=== PATIENT | female | born 1945 | race Caucasian/White ===

== ENCOUNTER 2017-07-20 09:38 | Outpatient (CLI) | payer MEDICARE ==
--- NOTE | 2017-07-20 11:17 | RAD ---
PA AND LATERAL VIEWS OF THE CHEST: HISTORY: Cough. COMPARISON: 10/10/2015 FINDINGS: The heart size is normal. The aorta is tortuous. The lungs are well expanded without confluent area s of consolidation, pneumothoraces, or pleural effusions. There are degenerative changes of the spin e. IMPRESSION: No radiographic evidence of acute cardiopulmonary process. POS: [facility]
== END 2017-07-20 09:39 | disposition home or self-care (01) ==
LOC: RAD 09:38
PROVIDERS: ATTEND Internal Medicine
DX: R05 Cough (principal)
CPT/HCPCS: 71046; 87804

== ENCOUNTER 2017-10-19 21:08 | Emergency (ER) | payer MEDICARE ==
[2017-10-19] MEDS ORDERED: Acetaminophen 325 MG TAB ONE (21:50)
== END 2017-10-19 22:29 | disposition home or self-care (01) ==
LOC: SCSER 21:08
DX: S00.03XA Contusion of scalp, initial encounter (principal); S00.83XA Contusion of other part of head, initial encounter; S80.02XA Contusion of left knee, initial encounter; I10 Essential (primary) hypertension; M19.90 Unspecified osteoarthritis, unspecified site; Z85.3 Personal history of malignant neoplasm of breast; Z79.899 Other long term (current) drug therapy; W01.0XXA Fall on same level from slipping, tripping and stumbling without subsequent striking against object, initial encounter
CPT/HCPCS: 99283

== ENCOUNTER 2017-12-22 10:22 | Outpatient (CLI) | payer MEDICARE | END 2017-12-22 10:23 | disposition home or self-care (01) | LOC: BICMAMMO 10:22 | PROVIDERS: ATTEND Internal Medicine Hematology & Oncology | DX: Z12.31 Encounter for screening mammogram for malignant neoplasm of breast (principal); Z85.3 Personal history of malignant neoplasm of breast | CPT/HCPCS: 77063; 77067 ==

== ENCOUNTER 2018-12-29 15:09 | Outpatient (CLI) | payer MEDICARE ==
--- NOTE | 2018-12-29 17:43 | MMO ---
Bilateral MAMMO Bilat Screen [facility]. CLINICAL HISTORY: Patient is 73 years old and is seen for screening. The patient has no family history of breast cancer. The patient has a history of malignant (generic) in the right breast 2008. VIEWS: The views performed were: bilateral craniocaudal with tomosynthesis and bilateral mediolateral oblique with tomosynthesis. FILMS COMPARED: The present examination has been compared to prior imaging studies performed at [facility] on 12/10/2015, 12/16/2016 and 12/22/2017. MAMMOGRAM FINDINGS: There are scattered fibroglandular densities. There is a post-surgical scar seen in the posterior upper-outer region of the right breast. Finding remains unchanged from the prior study. There are no suspicious masses, suspicious calcifications, or new areas of architectural distortion. IMPRESSION: THERE IS NO MAMMOGRAPHIC EVIDENCE OF MALIGNANCY. A ROUTINE FOLLOW-UP MAMMOGRAM IN 1 YEAR IS RECOMMENDED. THE RESULTS OF THIS EXAM WERE SENT TO THE PATIENT. ACR BI-RADS Category 2 - Benign finding MAMMOGRAPHY NOTE: 1. A negative mammogram report should not delay a biopsy if a dominant of clinically suspicious mass is present. 2. Approximately 10% to 15% of breast cancers are not detected by mammography. 3. Adenosis and dense breasts may obscure an underlying neoplasm. Reported by: RHIANNA CORNELL MD Electonically Signed: [id number]
== END 2018-12-29 15:10 | disposition home or self-care (01) ==
LOC: BICMAMMO 15:09
PROVIDERS: ATTEND Internal Medicine Hematology & Oncology
DX: Z12.31 Encounter for screening mammogram for malignant neoplasm of breast (principal)
CPT/HCPCS: 77063; 77067

== ENCOUNTER 2020-01-02 10:39 | Outpatient (CLI) | payer MEDICARE ==
--- NOTE | 2020-01-02 11:36 | MMO ---
Bilateral MAMMO Bilat Screen [facility]. CLINICAL HISTORY: Patient is 74 years old and is seen for screening. The patient has no family history of breast cancer. The patient has a history of malignant (generic) in the right breast 2008. VIEWS: The views performed were: bilateral craniocaudal with tomosynthesis and bilateral mediolateral oblique with tomosynthesis. FILMS COMPARED: The present examination has been compared to prior imaging studies performed at [facility] on 12/10/2015, 12/16/2016, 12/22/2017 and 12/29/2018. This study has been interpreted with the assistance of computer-aided detection. MAMMOGRAM FINDINGS: There are scattered fibroglandular densities. Finding 1: There are stable benign appearing calcifications seen in both breasts. Finding 2: There is a stable post-surgical scar seen in the right breast. There are no suspicious masses, suspicious calcifications, or new areas of architectural distortion. IMPRESSION: THERE IS NO MAMMOGRAPHIC EVIDENCE OF MALIGNANCY. A ROUTINE FOLLOW-UP MAMMOGRAM IN 1 YEAR IS RECOMMENDED. THE RESULTS OF THIS EXAM WERE SENT TO THE PATIENT. ACR BI-RADS Category 2 - Benign finding MAMMOGRAPHY NOTE: 1. A negative mammogram report should not delay a biopsy if a dominant of clinically suspicious mass is present. 2. Approximately 10% to 15% of breast cancers are not detected by mammography. 3. Adenosis and dense breasts may obscure an underlying neoplasm. Reported by: SHIRAZ STAPLETON MD Electonically Signed: [id number]
== END 2020-01-02 10:40 | disposition home or self-care (01) ==
LOC: BICMAMMO 10:39
PROVIDERS: ATTEND Internal Medicine Hematology & Oncology
DX: Z12.31 Encounter for screening mammogram for malignant neoplasm of breast (principal); Z85.3 Personal history of malignant neoplasm of breast
CPT/HCPCS: 77063; 77067

== ENCOUNTER 2020-10-11 09:50 | Outpatient (CLI) | payer MEDICARE | END 2020-10-11 09:51 | disposition home or self-care (01) | LOC: TBSIIMAG 09:50 | PROVIDERS: ATTEND Orthopaedic Surgery | DX: M43.06 Spondylolysis, lumbar region (principal); M47.816 Spondylosis without myelopathy or radiculopathy, lumbar region; M51.25 Other intervertebral disc displacement, thoracolumbar region; M47.817 Spondylosis without myelopathy or radiculopathy, lumbosacral region | CPT/HCPCS: 72148 ==

== ENCOUNTER 2020-10-23 09:45 | Outpatient (CLI) | payer MEDICARE | END 2020-10-23 09:46 | disposition home or self-care (01) | LOC: BICRAD 09:45 | PROVIDERS: ATTEND Specialist | DX: M25.512 Pain in left shoulder (principal) ==

== ENCOUNTER 2021-05-21 09:19 | Outpatient (CLI) | payer MEDICARE | END 2021-05-21 09:20 | disposition home or self-care (01) | LOC: BICMAMMO 09:19 | PROVIDERS: ATTEND Internal Medicine | DX: Z13.820 Encounter for screening for osteoporosis (principal); M85.89 Other specified disorders of bone density and structure, multiple sites | CPT/HCPCS: 77080 ==

== ENCOUNTER 2021-11-14 12:29 | Outpatient (CLI) | payer MEDICARE ==
[2021-11-14 14:42] LABS: #Eosinphils 0.1 10x3/uL (0.0-0.5); #Monocytes 0.3 10x3/uL (0.0-1.1); #Neutrophils 3.5 10x3/uL (1.5-8.4); %Basophils 0.8 % (0.0-2.0); %Eosinophils 1.5 % (0.0-6.0); %Lymphocytes 18.2 % (18.0-47.0); %Monocytes 5.7 % (0.0-10.0); %Neutrophils 73.6 % (40.0-75.0); Hemoglobin 13.1 g/dL (12.0-15.5); Mean Corpuscular HGB CONC 31.8 g/dL (32.0-36.0); Mean Corpuscular Hemoglobin 28.7 pg (27.0-33.0); Mean Corpuscular Volume 90.2 fl (81.6-98.3); Mean Platelet Volume 10.1 fl (7.4-10.4); Platelet Count 216 10x3/uL (150-450); RBC Distribution Width 13.2 % (11.5-14.5); Red Blood Cell (RBC) Count 4.57 10x6/uL (3.90-5.03); White Blood Cell (WBC) Count 4.7 10x3/uL (3.5-10.5)
[2021-11-14 15:00] LABS: ALT (SGPT) 55 U/L (8-55); AST (SGOT) 18 U/L (5-34); Albumin 4.5 g/dL (3.4-4.8); Alkaline Phosphatase 65 U/L (40-110); Anion Gap 14 mmol/L (10-20); BUN (Urea Nitrogen) 9 mg/dL (9.8-20.1); Bilirubin, Total 0.7 mg/dL (0.2-1.2); Calc. Creatinine Clearance 0 mL/min (70-130); Calcium 9.5 mg/dL (7.8-10.44); Carbon Dioxide 27 mmol/L (23-31); Chloride 105 mmol/L (98-107); Globulin 2.4 g/dL (2.4-3.5); Glucose 82 mg/dL (83-110); Potassium 4.1 mmol/L (3.5-5.1); Protein, Total 6.9 g/dL (5.8-8.1); Sodium 142 mmol/L (136-145)
== END 2021-11-14 12:30 | disposition home or self-care (01) ==
LOC: LABBT 12:29
PROVIDERS: ATTEND Internal Medicine Cardiovascular Disease
DX: Z01.818 Encounter for other preprocedural examination (principal); Z20.822 Contact with and (suspected) exposure to COVID-19
CPT/HCPCS: 80053; 85025; 93005; U0003; U0005; 93010

== ENCOUNTER 2021-11-19 06:03 | Day surgery (SDC) | payer MEDICARE ==
[2021-11-14 13:29] VITALS: BMI 25.0
== END 2021-11-19 08:59 | disposition home or self-care (01) ==
LOC: CCL 06:03
PROVIDERS: ATTEND Internal Medicine Cardiovascular Disease
PROC: B246ZZ4 Ultrasonography of Right and Left Heart, Transesophageal (ICD-10-PCS; principal; 2021-11-19)
PROC: 5A2204Z Restoration of Cardiac Rhythm, Single (ICD-10-PCS; 2021-11-19)
DX: I48.0 Paroxysmal atrial fibrillation (principal); I11.9 Hypertensive heart disease without heart failure; I08.3 Combined rheumatic disorders of mitral, aortic and tricuspid valves; I70.0 Atherosclerosis of aorta; M19.90 Unspecified osteoarthritis, unspecified site; Z85.3 Personal history of malignant neoplasm of breast; Z79.01 Long term (current) use of anticoagulants; Z79.899 Other long term (current) drug therapy; Z88.5 Allergy status to narcotic agent
CPT/HCPCS: 92960; 93005; 93010; 93312

== ENCOUNTER 2021-11-25 16:08 | Inpatient (IN) | payer MEDICARE ==
[2021-11-25 18:14] VITALS: BMI 24.7
[2021-11-25] MEDS ORDERED: Metoprolol Tartrate 5 MG/5 ML VIAL IVP SCH (20:40)
[2021-11-26] MEDS ORDERED: Acetaminophen 325 MG TAB PO PRN (00:13)
[2021-11-26] MEDS ORDERED: Apixaban 5 MG TAB PO SCH ×2 (00:45→09:00)
[2021-11-26] MEDS ORDERED: Carvedilol 3.125 MG TAB PO SCH (00:45)
[2021-11-26 04:56] LABS: Cardiac Risk 3.2 (Less than 4.5)
[2021-11-26 08:14] LABS: #Eosinphils 0.1 thou/uL (0.0-0.7); #Lymphocytes 1.3 thou/uL (1.20-3.40); #Monocytes 0.4 thou/uL (0.11-0.59); #Neutrophils 4.4 thou/uL (1.40-6.50); %Basophils 0.2 % (0.0-1.0); %Eosinophils 1.4 % (0.0-10.0); %Lymphocytes 21.2 % (21.0-51.0); %Monocytes 5.8 % (0.0-10.0); %Neutrophils 71.4 % (42.0-75.0); Hemoglobin 11.9 g/dL (12.0-16.0); Mean Corpuscular Hemoglobin 29.1 pg (27.0-31.0); Mean Corpuscular Volume 93.9 fL (78.0-98.0); Mean Platelet Volume 7.8 fL (7.4-10.4); Platelet Count 214 thou/uL (130-400); RBC Distribution Width 12.1 % (11.5-14.5); Red Blood Cell (RBC) Count 4.07 mill/uL (4.20-5.40); White Blood Cell (WBC) Count 6.1 thou/uL (4.8-10.8)
[2021-11-26 08:25] LABS: ALT (SGPT) 23 U/L (8-55); AST (SGOT) 21 U/L (5-34); Albumin 3.5 g/dL (3.4-4.8); Alkaline Phosphatase 50 U/L (40-110); Anion Gap 14 mmol/L (10-20); BUN (Urea Nitrogen) 9 mg/dL (9.8-20.1); Bilirubin, Total 0.8 mg/dL (0.2-1.2); Calc. Creatinine Clearance 66 mL/min (70-130); Carbon Dioxide 24 mmol/L (23-31); Chloride 104 mmol/L (98-107); Globulin 2.4 g/dL (2.4-3.5); Glucose 87 mg/dL (83-110); Potassium 3.5 mmol/L (3.5-5.1); Protein, Total 5.9 g/dL (5.8-8.1); Sodium 138 mmol/L (136-145)
[2021-11-26 08:29] LABS: Hemoglobin A1c 5.2 % (4.0-6.0)
[2021-11-26 08:33] LABS: Troponin I 0.488 ng/mL (< 0.028)
[2021-11-26] MEDS ORDERED: ADENOSINE 60 MG/20 ML VIAL ONE (11:57)
[2021-11-26] MEDS: Carvedilol 3.125 MG TAB PO SCH ×2 (13:30→20:29)
[2021-11-26] MEDS: Flecainide 50 MG TAB PO SCH ×2 (13:30→20:29)
[2021-11-26] MEDS: Aspirin Chewable 81 MG TAB PO SCH (16:12)
[2021-11-26] MEDS ORDERED: Communication Order-Pharmacy FS SCH (17:15)
[2021-11-27] MEDS: Flecainide 50 MG TAB PO SCH (06:25)
[2021-11-27] MEDS: Aspirin Chewable 81 MG TAB PO SCH (06:25)
[2021-11-27] MEDS: Carvedilol 3.125 MG TAB PO SCH (06:25)
[2021-11-27] MEDS ORDERED: Apixaban 5 MG TAB PO SCH (09:00)
[2021-11-27 11:56] VITALS: BP 135/71; TEMP 98.3
[2021-11-27] MEDS ORDERED: cloNIDine 0.1 MG TAB PO PRN (21:00)
== END 2021-11-27 13:00 | disposition home or self-care (01) | DRG 282 ==
LOC: 2SW 16:08 → OBSVTOIN 11-27 07:32
PROVIDERS: ADMIT Family Medicine; ATTEND Internal Medicine
DX: I48.92 Unspecified atrial flutter (principal); I21.A1 Myocardial infarction type 2; Z20.822 Contact with and (suspected) exposure to COVID-19; R07.89 Other chest pain; I10 Essential (primary) hypertension; Z96.653 Presence of artificial knee joint, bilateral; I08.1 Rheumatic disorders of both mitral and tricuspid valves; M19.90 Unspecified osteoarthritis, unspecified site; I48.19 Other persistent atrial fibrillation; Z79.899 Other long term (current) drug therapy; Z79.82 Long term (current) use of aspirin; Z88.6 Allergy status to analgesic agent; Z79.01 Long term (current) use of anticoagulants; Z85.3 Personal history of malignant neoplasm of breast; Z90.710 Acquired absence of both cervix and uterus; Z82.49 Family history of ischemic heart disease and other diseases of the circulatory system; Z90.89 Acquired absence of other organs; Z82.3 Family history of stroke
CPT/HCPCS: 36415; 78452; 80053; 80061; 83036; 83735; 84484; 85025; 93017; 94760; A9500; G0378; J0153; U0003; U0005

== ENCOUNTER 2021-12-03 10:57 | Outpatient (CLI) | payer MEDICARE ==
[2021-12-03 12:50] LABS: #Eosinphils 0.1 10x3/uL (0.0-0.5); #Monocytes 0.4 10x3/uL (0.0-1.1); #Neutrophils 3.3 10x3/uL (1.5-8.4); %Basophils 0.4 % (0.0-2.0); %Eosinophils 1.1 % (0.0-6.0); %Lymphocytes 15.9 % (18.0-47.0); %Monocytes 7.8 % (0.0-10.0); %Neutrophils 74.4 % (40.0-75.0); Hemoglobin 10.6 g/dL (12.0-15.5); Mean Corpuscular HGB CONC 32.8 g/dL (32.0-36.0); Mean Corpuscular Hemoglobin 28.6 pg (27.0-33.0); Mean Corpuscular Volume 87.1 fl (81.6-98.3); Mean Platelet Volume 10.1 fl (7.4-10.4); Platelet Count 228 10x3/uL (150-450); RBC Distribution Width 13.2 % (11.5-14.5); Red Blood Cell (RBC) Count 3.71 10x6/uL (3.90-5.03); White Blood Cell (WBC) Count 4.5 10x3/uL (3.5-10.5)
[2021-12-03 13:03] LABS: ALT (SGPT) 12 U/L (8-55); AST (SGOT) 17 U/L (5-34); Albumin 3.8 g/dL (3.4-4.8); Alkaline Phosphatase 48 U/L (40-110); Anion Gap 17 mmol/L (10-20); BUN (Urea Nitrogen) 8 mg/dL (9.8-20.1); Bilirubin, Total 1.1 mg/dL (0.2-1.2); Calc. Creatinine Clearance 0 mL/min (70-130); Calcium 8.7 mg/dL (7.8-10.44); Carbon Dioxide 23 mmol/L (23-31); Chloride 96 mmol/L (98-107); Estimated GFR 79; Glucose 89 mg/dL (83-110); Potassium 3.9 mmol/L (3.5-5.1); Protein, Total 5.8 g/dL (5.8-8.1); Sodium 132 mmol/L (136-145)
== END 2021-12-03 10:58 | disposition home or self-care (01) ==
LOC: LABBT 10:57
PROVIDERS: ATTEND Internal Medicine Cardiovascular Disease
DX: Z01.818 Encounter for other preprocedural examination (principal); K52.9 Noninfective gastroenteritis and colitis, unspecified
CPT/HCPCS: 80053; 85025; 87811

== ENCOUNTER 2021-12-05 09:06 | Day surgery (SDC) | payer MEDICARE ==
[2021-12-04 12:15] VITALS: BMI 24.7
[2021-12-05] MEDS ORDERED: Iopamidol 370 76% 100 ML VIAL ONE (09:36)
[2021-12-05] MEDS ORDERED: Heparin 10,000 UNITS/ 10 ML VIAL ONE (10:15)
[2021-12-05] MEDS ORDERED: Verapamil 5 MG/2 ML VIAL ONE (10:16)
[2021-12-05] MEDS ORDERED: Lidocaine 1% PF 5 ML VIAL ONE (10:16)
[2021-12-05] MEDS ORDERED: Nitroglycerin 100MG/250ML BOT 250 ML ONE (10:16)
[2021-12-05] MEDS ORDERED: Midazolam HCl 2 mg/2 ml Vial ONE (11:03)
[2021-12-05] MEDS ORDERED: Fentanyl 100 MCG/2 ML VIAL ONE (11:03)
[2021-12-05] MEDS ORDERED: cloNIDine 0.1 MG TAB ONE (12:46)
== END 2021-12-05 14:35 | disposition home or self-care (01) ==
LOC: SDC 09:06
PROVIDERS: ATTEND Internal Medicine Cardiovascular Disease
PROC: 4A023N7 Measurement of Cardiac Sampling and Pressure, Left Heart, Percutaneous Approach (ICD-10-PCS; principal; 2021-12-05)
PROC: B2111ZZ Fluoroscopy of Multiple Coronary Arteries using Low Osmolar Contrast (ICD-10-PCS; 2021-12-05)
DX: I25.10 Atherosclerotic heart disease of native coronary artery without angina pectoris (principal); I10 Essential (primary) hypertension; I48.91 Unspecified atrial fibrillation; E78.00 Pure hypercholesterolemia, unspecified; Z79.01 Long term (current) use of anticoagulants; Z79.82 Long term (current) use of aspirin; Z79.899 Other long term (current) drug therapy; Z88.5 Allergy status to narcotic agent
CPT/HCPCS: 93458; 99152; 99153; C1769; J1644; J2250; J3010; Q9967

== ENCOUNTER 2021-12-10 13:06 | Outpatient (CLI) | payer MEDICARE ==
[~2021-12-10 13:06] MED LIST: Iopamidol-370 76% 500 ML 1 ML ONE
== END 2021-12-10 13:07 | disposition home or self-care (01) ==
LOC: BICCT 13:06
PROVIDERS: ATTEND Physician Assistant Medical
DX: K52.9 Noninfective gastroenteritis and colitis, unspecified (principal); R10.32 Left lower quadrant pain; K57.30 Diverticulosis of large intestine without perforation or abscess without bleeding; J90 Pleural effusion, not elsewhere classified; N28.89 Other specified disorders of kidney and ureter; R93.3 Abnormal findings on diagnostic imaging of other parts of digestive tract
CPT/HCPCS: 74177; Q9967

== ENCOUNTER 2021-12-20 08:46 | Outpatient (CLI) | payer MEDICARE | END 2021-12-20 08:47 | disposition home or self-care (01) | LOC: SCSMRI 08:46 | PROVIDERS: ATTEND Physician Assistant Medical | DX: N28.89 Other specified disorders of kidney and ureter (principal); K80.20 Calculus of gallbladder without cholecystitis without obstruction; N28.1 Cyst of kidney, acquired | CPT/HCPCS: 74183 ==

== ENCOUNTER 2022-01-03 08:34 | Outpatient (CLI) | payer MEDICARE | END 2022-01-03 08:35 | disposition home or self-care (01) | LOC: BICMAMMO 08:34 | PROVIDERS: ATTEND Internal Medicine Hematology & Oncology | DX: Z12.31 Encounter for screening mammogram for malignant neoplasm of breast (principal); Z85.3 Personal history of malignant neoplasm of breast; Z98.890 Other specified postprocedural states | CPT/HCPCS: 77063; 77067 ==

== ENCOUNTER 2022-01-27 11:08 | Outpatient (CLI) | payer MEDICARE ==
[2022-01-27 12:17] LABS: #Eosinphils 0.1 10x3/uL (0.0-0.5); #Monocytes 0.3 10x3/uL (0.0-1.1); #Neutrophils 2.1 10x3/uL (1.5-8.4); %Basophils 1.2 % (0.0-2.0); %Eosinophils 2.5 % (0.0-6.0); %Lymphocytes 21.1 % (18.0-47.0); %Monocytes 9.3 % (0.0-10.0); %Neutrophils 65.6 % (40.0-75.0); Hemoglobin 11.3 g/dL (12.0-15.5); Mean Corpuscular HGB CONC 31.5 g/dL (32.0-36.0); Mean Corpuscular Hemoglobin 28.3 pg (27.0-33.0); Mean Corpuscular Volume 89.8 fl (81.6-98.3); Platelet Count 219 10x3/uL (150-450); RBC Distribution Width 13.8 % (11.5-14.5); White Blood Cell (WBC) Count 3.2 10x3/uL (3.5-10.5)
[2022-01-27 13:17] LABS: ALT (SGPT) 7 U/L (8-55); AST (SGOT) 15 U/L (5-34); Albumin 4.2 g/dL (3.4-4.8); Alkaline Phosphatase 57 U/L (40-110); Anion Gap 15 mmol/L (10-20); BUN (Urea Nitrogen) 10 mg/dL (9.8-20.1); Bilirubin, Total 0.7 mg/dL (0.2-1.2); Calc. Creatinine Clearance 0 mL/min (70-130); Calcium 9.6 mg/dL (7.8-10.44); Carbon Dioxide 28 mmol/L (23-31); Chloride 105 mmol/L (98-107); Estimated GFR 89; Globulin 2.6 g/dL (2.4-3.5); Glucose 94 mg/dL (83-110); Protein, Total 6.8 g/dL (5.8-8.1); Sodium 144 mmol/L (136-145)
== END 2022-01-27 11:09 | disposition home or self-care (01) ==
LOC: LABBT 11:08
PROVIDERS: ATTEND Specialist
DX: Z01.818 Encounter for other preprocedural examination (principal); K80.20 Calculus of gallbladder without cholecystitis without obstruction; Z20.822 Contact with and (suspected) exposure to COVID-19
CPT/HCPCS: 80053; 85025; 87811; 93005; 93010

== ENCOUNTER 2022-01-30 06:01 | Observation (INO) | payer MEDICARE ==
[2022-01-30] MEDS ORDERED: CEFAZOLIN 2 GM VIAL ONE (06:22)
[2022-01-30] MEDS ORDERED: Acetaminophen 500 MG TAB ONE (06:22)
[2022-01-30] MEDS ORDERED: Ketorolac Tromethamine 30 MG/ML VIAL ONE (06:22)
[2022-01-30] MEDS ORDERED: Sodium Chloride 0.9% 100 ML ONE (06:22)
[2022-01-30] MEDS ORDERED: Lidocaine 1% MPF 2 ML VIAL ONE (06:23)
[2022-01-30] MEDS ORDERED: fentaNYL Citrate/PF 100 MCG/2 ML SYRINGE ONE (06:46)
[2022-01-30] MEDS ORDERED: Lidocaine 2% Jelly 5 ML TUBE ONE (06:47)
[2022-01-30] MEDS ORDERED: Bupivacaine/Epinephrine 0.25% 30 ML VIAL ONE (06:47)
[2022-01-30] MEDS ORDERED: Fentanyl 100 MCG/2 ML VIAL ONE (08:38)
[2022-01-30] MEDS ORDERED: HYDROcodone/Acetaminophen 10/325 mg Tablet PO PRN (08:51)
[2022-01-30] MEDS ORDERED: Ondansetron PF 4 MG/2 ML Vial IVP PRN (08:51)
[2022-01-30] MEDS ORDERED: Calcium Carbonate 500 MG ChewTAB PO PRN (08:51)
[2022-01-30] MEDS ORDERED: Dicyclomine 10 MG CAP PO PRN (08:51)
[2022-01-30] MEDS ORDERED: Dextrose 50% Abboject 50 ML SYRINGE SLOW IVP PRN (08:51)
[2022-01-30] MEDS ORDERED: Dextrose 5% in Water 1,000 ML IV PRN (08:51)
[2022-01-30] MEDS ORDERED: Promethazine HCl 25 MG/ML VIAL IM PRN (08:51)
[2022-01-30] MEDS ORDERED: Morphine 2 MG/ML VIAL SLOW IVP PRN (08:51)
[2022-01-30] MEDS ORDERED: Mag-Al 1200 mg/1200 mg/30 ML UDCUP PO PRN (08:51)
[2022-01-30] MEDS ORDERED: cloNIDine 0.1 MG TAB PO PRN (08:51)
[2022-01-30] MEDS ORDERED: hydrALAZINE 20 MG/ML VIAL SLOW IVP PRN (08:51)
[2022-01-30] MEDS ORDERED: Morphine 4 MG/ML VIAL SLOW IVP PRN (08:51)
[2022-01-30] MEDS ORDERED: Acetaminophen 325 MG TAB PO PRN (08:51)
[2022-01-30] MEDS ORDERED: Non-Formulary Medication 1 EACH PO PRN (09:16)
[2022-01-30] MEDS ORDERED: Ondansetron HCl/PF 4 MG/2 ML Vial IVP PRN (09:30)
[2022-01-30] MEDS ORDERED: Promethazine HCl 25 MG/ML VIAL IM/IV PRN (09:30)
[2022-01-30 10:55] VITALS: BMI 22.3
[2022-01-30] MEDS: Lactated Ringer's 1,000 ML IV SCH (11:12)
[2022-01-30] MEDS: Aspirin Chewable 81 MG TAB PO SCH (11:12)
[2022-01-30] MEDS: Carvedilol 3.125 MG TAB PO SCH ×2 (11:12→19:24)
[2022-01-30] MEDS: Famotidine/PF 20 mg/2ml Vial SLOW IVP SCH ×2 (11:13→20:34)
[2022-01-30] MEDS: Famotidine 20 MG TAB PO SCH ×2 (11:13→19:24)
[2022-01-30] MEDS: Flecainide 50 MG TAB PO SCH ×2 (11:13→19:25)
[2022-01-30] MEDS: Ketorolac Tromethamine 30 MG/ML VIAL IVP SCH ×3 (13:04→19:26)
[2022-01-31] MEDS: Ketorolac Tromethamine 30 MG/ML VIAL IVP SCH ×2 (00:16→06:36)
[2022-01-31] MEDS: Lactated Ringer's 1,000 ML IV SCH (01:45)
[2022-01-31 06:02] LABS: #Monocytes 0.4 thou/uL (0.11-0.59); #Neutrophils 5.6 thou/uL (1.40-6.50); %Basophils 0.3 % (0.0-1.0); %Eosinophils 0.2 % (0.0-10.0); %Lymphocytes 13.4 % (21.0-51.0); %Monocytes 6.3 % (0.0-10.0); %Neutrophils 79.8 % (42.0-75.0); Hemoglobin 9.4 g/dL (12.0-16.0); Mean Corpuscular HGB CONC 32.4 g/dL (32.0-36.0); Mean Corpuscular Hemoglobin 29.3 pg (27.0-31.0); Mean Corpuscular Volume 90.4 fL (78.0-98.0); Mean Platelet Volume 7.3 fL (7.4-10.4); Platelet Count 199 thou/uL (130-400); RBC Distribution Width 13.1 % (11.5-14.5); Red Blood Cell (RBC) Count 3.22 mill/uL (4.20-5.40); White Blood Cell (WBC) Count 7.1 thou/uL (4.8-10.8)
[2022-01-31 06:26] LABS: ALT (SGPT) 36 U/L (8-55); AST (SGOT) 44 U/L (5-34); Albumin 3.3 g/dL (3.4-4.8); Alkaline Phosphatase 45 U/L (40-110); Anion Gap 13 mmol/L (10-20); BUN (Urea Nitrogen) 18 mg/dL (9.8-20.1); Bilirubin, Total 0.5 mg/dL (0.2-1.2); Calc. Creatinine Clearance 50 mL/min (70-130); Calcium 8.8 mg/dL (7.8-10.44); Carbon Dioxide 26 mmol/L (23-31); Chloride 99 mmol/L (98-107); Estimated GFR 68; Globulin 2.3 g/dL (2.4-3.5); Glucose 104 mg/dL (83-110); Potassium 4.1 mmol/L (3.5-5.1); Protein, Total 5.6 g/dL (5.8-8.1); Sodium 134 mmol/L (136-145)
[2022-01-31] MEDS: Carvedilol 3.125 MG TAB PO SCH (06:36)
[2022-01-31] MEDS: Famotidine 20 MG TAB PO SCH (06:36)
[2022-01-31] MEDS: Flecainide 50 MG TAB PO SCH (06:36)
[2022-01-31] MEDS: Aspirin Chewable 81 MG TAB PO SCH (10:16)
[2022-01-31] MEDS: Famotidine/PF 20 mg/2ml Vial SLOW IVP SCH ×2 (10:19→10:23)
[2022-01-31 12:10] VITALS: BP 148/77; TEMP 97.6
== END 2022-01-31 14:31 | disposition home or self-care (01) ==
LOC: SDC 06:01 → SURG A 08:51
PROVIDERS: ADMIT Specialist; ATTEND Specialist
PROC: 0FT44ZZ Resection of Gallbladder, Percutaneous Endoscopic Approach (ICD-10-PCS; principal; 2022-01-30)
DX: K80.10 Calculus of gallbladder with chronic cholecystitis without obstruction (principal); K82.8 Other specified diseases of gallbladder; I10 Essential (primary) hypertension; I48.0 Paroxysmal atrial fibrillation; I25.10 Atherosclerotic heart disease of native coronary artery without angina pectoris; M19.90 Unspecified osteoarthritis, unspecified site; I08.1 Rheumatic disorders of both mitral and tricuspid valves; Z85.3 Personal history of malignant neoplasm of breast; Z79.01 Long term (current) use of anticoagulants; Z79.82 Long term (current) use of aspirin; Z79.899 Other long term (current) drug therapy; Z88.5 Allergy status to narcotic agent; Z96.653 Presence of artificial knee joint, bilateral
CPT/HCPCS: 36415; 80053; 85025; 88304; C1713; J0360; J0690; J1885; J3010; J3490; S0028

== ENCOUNTER 2022-06-05 07:48 | Outpatient (CLI) | payer MEDICARE ==
[2022-06-05] MEDS ORDERED: Iopamidol 370 76% 100 ML VIAL ONE (14:09)
== END 2022-06-05 07:49 | disposition home or self-care (01) ==
LOC: NM 07:48
PROVIDERS: ATTEND Internal Medicine Hematology & Oncology
DX: C50.211 Malignant neoplasm of upper-inner quadrant of right female breast (principal); R63.4 Abnormal weight loss; M89.9 Disorder of bone, unspecified; D50.8 Other iron deficiency anemias; D51.9 Vitamin B12 deficiency anemia, unspecified
CPT/HCPCS: 71260; 74177; 78306; A9503; Q9967

== ENCOUNTER 2024-01-20 09:05 | Outpatient (CLI) | payer MEDICARE | END 2024-01-20 09:06 | disposition home or self-care (01) | LOC: BICMAMMO 09:05 | PROVIDERS: ATTEND Internal Medicine Hematology & Oncology | DX: Z12.31 Encounter for screening mammogram for malignant neoplasm of breast (principal); Z85.3 Personal history of malignant neoplasm of breast; Z98.890 Other specified postprocedural states | CPT/HCPCS: 77063; 77067 ==

== ENCOUNTER 2025-02-06 11:03 | Outpatient (CLI) | payer MEDICARE | END 2025-02-06 11:04 | disposition home or self-care (01) | LOC: BICRAD 11:03 | PROVIDERS: ATTEND Internal Medicine Hematology & Oncology | DX: R07.81 Pleurodynia (principal); D50.8 Other iron deficiency anemias; D51.9 Vitamin B12 deficiency anemia, unspecified; M81.0 Age-related osteoporosis without current pathological fracture; R91.8 Other nonspecific abnormal finding of lung field; Z85.3 Personal history of malignant neoplasm of breast | CPT/HCPCS: 36415; 71046; 82607; 82728; 83540; 83550 ==